=== PATIENT | female | born 1955 | race Two or more races ===

== ENCOUNTER 2016-12-05 17:27 | Emergency (ER) | payer OTHER ==
[~2016-12-05] VITALS: Ht 157.5 cm; Wt 79.4 kg
[2016-12-05 17:30] VITALS: BP 103/72
== END 2016-12-05 18:40 | disposition home or self-care (01) ==
LOC: ER 17:35
DX: H11.31 Conjunctival hemorrhage, right eye (principal); J45.909 Unspecified asthma, uncomplicated; R73.09 Other abnormal glucose
CPT/HCPCS: 82962; 99282; A4606; Z7610

== ENCOUNTER 2018-05-03 15:42 | Emergency (ER) | payer OTHER ==
[~2018-05-03] VITALS: Ht 157.5 cm; Wt 83.9 kg
--- NOTE | 2018-05-03 15:55 | NUR ---
PT SEEN AND EXAMINED BY DR. CANO.
[2018-05-03] MEDS ORDERED: ASPIRIN 81 MG TAB.CHEW PO ONE (16:00)
--- NOTE | 2018-05-03 16:05 | NUR ---
PT BIB SELF C/O MIDSTERNAL CHEST PAIN, SUDDEN ONSET X 15 MINS, PT IS AAOX3, NOT IN RESPIRATORY DISTRESS, V/S STABLE, HOOKED TO MONITOR, KEPT RESTED AND COMFORTABLE, WILL CONTINUE TO MONITOR.
--- NOTE | 2018-05-03 16:05 | NUR ---
PT IV LINE ESTABLISHED, LABS DRAWNED AND SENT TO LAB.
[2018-05-03] MEDS ORDERED: ASPIRIN 81 MG TAB.CHEW ONE (16:06)
[2018-05-03 16:12] LABS: BASOPHILS # (AUTO) 0.1 /CMM (0.0-0.2); EOSINOPHILS % (AUTO) 4.3 % (0.0-6.0); HEMATOCRIT 42 % (33-45); HEMOGLOBIN 14.2 g/dL (11.5-14.8); LYMPHOCYTES # (AUTO) 2.2 /CMM (0.8-4.8); LYMPHOCYTES % (AUTO) 33.9 % (20.0-44.0); MEAN CORPUSCULAR HGB CONC 34 g/dl (31.0-36.0); MEAN CORPUSCULAR VOLUME 92 fL (82-100); MONOCYTES # (AUTO) 0.5 /CMM (0.1-1.30); MONOCYTES % (AUTO) 8.1 % (2.0-12.0); NEUTROPHILS # (AUTO) 3.4 /CMM (1.8-8.9); NEUTROPHILS % (AUTO) 52.7 % (43.0-81.0); PLATELET COUNT (AUTO) 229 /CMM (150-450); RED BLOOD CELL COUNT(AUTO) 4.57 MIL/uL (4.0-5.2); WHITE BLOOD COUNT (AUTO) 6.5 K/uL (4.3-11.0)
--- NOTE | 2018-05-03 16:16 | NUR ---
TEST DECK SUPERVISOR AT BEDSIDE FOR XRAY.
[2018-05-03 16:21] LABS: CALCIUM, SERUM 8.9 mg/dL (8.5-10.1); CARBON DIOXIDE 25 mmol/L (21-32); CHLORIDE 105 mmol/L (98-107); CREATININE 0.8 mg/dL (0.6-1.3); GLUCOSE 100 mg/dL (74-106); POTASSIUM 3.5 mmol/L (3.5-5.1); SODIUM SERUM 140 mmol/L (136-145); UREA NITROGEN, BLOOD 14 mg/dL (7-18)
[2018-05-03] MEDS ORDERED: ONDANSETRON HCL/PF 4 MG/2 ML VIAL ONE (17:10)
[2018-05-03] MEDS ORDERED: ONDANSETRON HCL/PF - ER 4 MG/2 ML VIAL IV ONE (17:30)
[2018-05-03 19:00] VITALS: BP 122/64
--- NOTE | 2018-05-03 19:10 | NUR ---
AWAITING REPEAT TROPONIN RESULT.
--- NOTE | 2018-05-03 19:17 | NUR ---
REPORT GIVEN TO MICHAEL SANDY FOR CECILLE.
--- NOTE | 2018-05-03 19:50 | NUR ---
IV removed. Catheter intact and site benign. Pressure and 4x4 applied to site. No bleeding noted.Patient discharged to home in stable condition. Written and verbal after care instructions given. Patient verbalizes understanding of instruction. PT AMBULATORY WITH STEADY GAIT.
== END 2018-05-03 20:06 | disposition home or self-care (01) ==
LOC: ER 15:42
DX: R07.89 Other chest pain (principal); J45.909 Unspecified asthma, uncomplicated
CPT/HCPCS: 36415; 71045; 80048; 84484 ×2; 85025; 93005 ×2; 96374; 99284; A4606; J2405

== ENCOUNTER 2018-07-20 08:08 | Emergency (ER) | payer OTHER ==
[~2018-07-20] VITALS: Ht 157.5 cm; Wt 81.2 kg
--- NOTE | 2018-07-20 08:15 | NUR ---
BIB SELF FROM HOME. AAOX4. BREATHING EVEN AND UNLABORED. AMBULATORY. C/O FEVER SINCE MONDAY WITH PRODUCTIVE COUGH WITH YELLOW SPUTUM. PT NOTED CONGESTED. NO SOB. -N/V/D. PT REPORTED TAKING IBUPROHEN YESTERDAY, COUGH MEDICATION AND ZYRTEC. TO ER BED 4. MD AT BEDSIDE FOR EVAL. AWAITING ORDERS.
--- NOTE | 2018-07-20 08:28 | NUR ---
XRAY AT BEDSIDE
--- NOTE | 2018-07-20 08:37 | NUR ---
PT BEING WHEELED ON WHEELCHAIR FROM RADIOLOGY
[2018-07-20] MEDS ORDERED: AZITHROMYCIN 250 MG TABLET ONE (09:04)
[2018-07-20 09:15] VITALS: BP 122/76
[2018-07-20] MEDS ORDERED: AZITHROMYCIN 250 MG TABLET PO ONE (09:30)
== END 2018-07-20 09:16 | disposition home or self-care (01) ==
LOC: ER 08:09
DX: J20.9 Acute bronchitis, unspecified (principal); J45.909 Unspecified asthma, uncomplicated; Z87.01 Personal history of pneumonia (recurrent)
CPT/HCPCS: 71046

== ENCOUNTER → 2021-03-23 | Emergency (ER) | payer OTHER ==
[~2021-03-23] VITALS: Ht 157.5 cm; Wt 84.8 kg
[~2021-03-23] MED LIST: ACETAMINOPHEN 650 MG/20.3 ML UDC ONE; ACETAMINOPHEN 650 MG/20.3 ML UDC PO ONE; ALBU18HF2 IH; IOHEXOL-350 100 ML VIAL IV ONE; IV NS 0.9% 250 ML IV ONE; LORA10TA7 PO
[2021-03-23 18:02] LABS: BASOPHILS % (AUTO) 0.6 % (0.0-2.0); EOSINOPHILS % (AUTO) 2.9 % (0.0-6.0); HEMATOCRIT 46 % (33-45); HEMOGLOBIN 15.4 g/dL (11.5-14.8); MEAN CORPUSCULAR HGB CONC 34 g/dl (31.0-36.0); MEAN CORPUSCULAR VOLUME 94 fL (82-100); MONOCYTES # (AUTO) 0.7 K/uL (0.1-1.30); MONOCYTES % (AUTO) 8.9 % (2.0-12.0); NEUTROPHILS # (AUTO) 5.9 K/uL (1.8-8.9); NEUTROPHILS % (AUTO) 74.6 % (43.0-81.0); PLATELET COUNT (AUTO) 237 K/uL (150-450); RED BLOOD CELL COUNT(AUTO) 4.83 MIL/uL (4.0-5.2); WHITE BLOOD COUNT (AUTO) 7.9 K/uL (4.3-11.0)
[2021-03-23 18:24] LABS: CALCIUM, SERUM 8.6 mg/dL (8.5-10.1); CARBON DIOXIDE 26 mmol/L (21-32); CHLORIDE 103 mmol/L (98-107); CREATININE 0.7 mg/dL (0.6-1.3); GLUCOSE 101 mg/dL (74-106); POTASSIUM 3.6 mmol/L (3.5-5.1); SODIUM SERUM 138 mmol/L (136-145); UREA NITROGEN, BLOOD 12 mg/dL (7-18)
[2021-03-23 18:36] LABS: ALANINE AMINOTRANSFERASE 80 U/L (12-78); ALBUMIN 3.9 g/dL (3.4-5.0); ALKALINE PHOSPHATASE 80 U/L (46-116); ASPARTATE AMINOTRANSFERASE 51 U/L (15-37); BILIRUBIN,DIRECT 0.2 mg/dL (0.0-0.2); BILIRUBIN,TOTAL 0.4 mg/dL (0.2-1.0); TOTAL PROTEIN, SERUM 8.3 g/dL (6.4-8.2)
[2021-03-23 21:12] VITALS: BP 132/78
--- NOTE | 2021-03-23 21:12 | NUR ---
Patient discharged to home in stable condition. Written and verbal after care instructions given. Patient verbalizes understanding of instruction.IV removed. Catheter intact and site benign. Pressure and 4x4 applied to site. No bleeding noted.
[2021-03-23 23:05] LABS: BILIRUBIN,URINE NEGATIVE (NEGATIVE); COLOR,URINE YELLOW (YELLOW); LEUKOCYTE ESTERASE ,URINE NEGATIVE (NEGATIVE); NITRITE, URINE NEGATIVE (NEGATIVE); PROTEIN,URINE NEGATIVE (NEGATIVE); UGLUCOSE NEGATIVE (NEGATIVE); UROBILINOGEN,URINE 0.2 EU/dL (0.2)
[2021-03-24 08:48] LABS: BACTERIA,URINE None seen /HPF (None Seen); RBC,URINE 0-2 /HPF (0-2); SQUAMOUS EPITHELIAL CELL,UR None Seen /HPF (None Seen); WBC,URINE 0-2 /HPF (0-3)
== END | disposition home or self-care (01) ==
LOC: ER 16:51
DX: J18.9 Pneumonia, unspecified organism (principal); U09.9 Post COVID-19 condition, unspecified; R50.9 Fever, unspecified; R00.0 Tachycardia, unspecified; R04.2 Hemoptysis; J45.909 Unspecified asthma, uncomplicated; Z79.51 Long term (current) use of inhaled steroids; Z79.899 Other long term (current) drug therapy
CPT/HCPCS: 36415; 71045; 71275; 80048; 80076; 81001; 83605; 83880; 84484; 85025; 85378; 85730; 87040 ×2; 93005 ×2; 99285; J7050; Q9967

== ENCOUNTER 2021-03-29 23:47 | Inpatient (IN) | payer OTHER ==
[~2021-03-29] VITALS: Ht 157.5 cm; Wt 83.9 kg
[~2021-03-29 23:47] MED LIST changes: -ACETAMINOPHEN 650 MG/20.3 ML UDC ONE; -ACETAMINOPHEN 650 MG/20.3 ML UDC PO ONE; -IOHEXOL-350 100 ML VIAL IV ONE; -IV NS 0.9% 250 ML IV ONE
[2021-03-30] MEDS ORDERED: ONDANSETRON HCL/PF 4 MG/2 ML VIAL ONE (00:21)
[2021-03-30] MEDS ORDERED: MORPHINE SULFATE INJ 2 MG/ML DISP.SYRIN ONE (00:22)
[2021-03-30] MEDS ORDERED: MORPHINE SULFATE INJ 4 MG/ML DISP.SYRIN ONE ×3 (00:22→10:04)
[2021-03-30] MEDS ORDERED: ONDANSETRON HCL/PF 4 MG/2 ML VIAL IV ONE (00:30)
[2021-03-30] MEDS ORDERED: MORPHINE SULFATE INJ 2 MG/ML DISP.SYRIN IV ONE ×2 (00:30→01:30)
[2021-03-30 04:04] LABS: BASOPHILS % (AUTO) 0.4 % (0.0-2.0); EOSINOPHILS % (AUTO) 0.3 % (0.0-6.0); HEMATOCRIT 40 % (33-45); HEMOGLOBIN 13.3 g/dL (11.5-14.8); LYMPHOCYTES # (AUTO) 1.5 K/uL (0.8-4.8); LYMPHOCYTES % (AUTO) 13.7 % (20.0-44.0); MEAN CORPUSCULAR HGB CONC 33 g/dl (31.0-36.0); MEAN CORPUSCULAR VOLUME 92 fL (82-100); MONOCYTES # (AUTO) 0.6 K/uL (0.1-1.30); MONOCYTES % (AUTO) 5.3 % (2.0-12.0); NEUTROPHILS # (AUTO) 8.8 K/uL (1.8-8.9); NEUTROPHILS % (AUTO) 80.3 % (43.0-81.0); PLATELET COUNT (AUTO) 203 K/uL (150-450); RED BLOOD CELL COUNT(AUTO) 4.36 MIL/uL (4.0-5.2)
[2021-03-30 04:22] LABS: CALCIUM, SERUM 8.3 mg/dL (8.5-10.1); CREATININE 0.7 mg/dL (0.6-1.3); POTASSIUM 3.6 mmol/L (3.5-5.1)
[2021-03-30] MEDS ORDERED: MORPHINE SULFATE INJ 4 MG/ML DISP.SYRIN IV STA (04:37)
[2021-03-30 09:30] LABS: ALANINE AMINOTRANSFERASE 56 U/L (12-78); ALBUMIN 3.4 g/dL (3.4-5.0); ALKALINE PHOSPHATASE 71 U/L (46-116); ASPARTATE AMINOTRANSFERASE 35 U/L (15-37); BILIRUBIN,DIRECT 0.1 mg/dL (0.0-0.2); BILIRUBIN,TOTAL 0.2 mg/dL (0.2-1.0); TOTAL PROTEIN, SERUM 7.6 g/dL (6.4-8.2)
[2021-03-30] MEDS ORDERED: MORPHINE SULFATE INJ 4 MG/ML DISP.SYRIN IV ONE (09:30)
[2021-03-30] MEDS: MORPHINE SULFATE INJ 4 MG/ML DISP.SYRIN IV PRN ×2 (15:16→19:27)
[2021-03-30 16:00] VITALS: BP 170/89
[2021-03-30] MEDS ORDERED: ONDANSETRON HCL/PF 4 MG/2 ML VIAL IVP PRN (17:00)
[2021-03-30] MEDS ORDERED: MAG HYDROX/AL HYDROX/SIMETH 30 ML UDC PO PRN (17:00)
[2021-03-30] MEDS ORDERED: ACETAMINOPHEN 325 MG TABLET PO PRN (17:00)
[2021-03-30] MEDS ORDERED: MAGNESIUM HYDROXIDE 30 ML UDC PO PRN (17:00)
[2021-03-30] MEDS ORDERED: ZOLPIDEM TARTRATE 5 MG TABLET PO PRN (17:00)
[2021-03-30] MEDS ORDERED: Z GUARD REMEDY 4 OZ OINT TP PRN (17:00)
[2021-03-30] MEDS: HYDROCODONE/APAP 5/325MG TABLET PO PRN ×2 (17:41→22:13)
[2021-03-30 20:00] VITALS: BP 116/70
[2021-03-30] MEDS ORDERED: IV D5/ 0.9% NACL 1,000 ML IV PRN (20:00)
[2021-03-31] MEDS: MORPHINE SULFATE INJ 4 MG/ML DISP.SYRIN IV PRN (01:27)
[2021-03-31] MEDS ORDERED: PANTOPRAZOLE 40 MG TABLET.DR PO SCH (07:30)
== END 2021-03-31 01:34 | disposition short-term general hospital (02) | DRG 534 ==
LOC: ER 23:48 → TRANSITION 03-30 02:55 → MED 03-30 08:36 → TRANSITION 03-30 12:12 → MED 03-30 15:01
PROVIDERS: ADMIT Student in an Organized Health Care Education/Training Program; ATTEND Nurse Practitioner Acute Care
DX: S72.352A Displaced comminuted fracture of shaft of left femur, initial encounter for closed fracture (principal); J45.909 Unspecified asthma, uncomplicated; E66.9 Obesity, unspecified; E83.51 Hypocalcemia; Z86.16 Personal history of COVID-19; Z87.01 Personal history of pneumonia (recurrent); R73.9 Hyperglycemia, unspecified; R74.01 Elevation of levels of liver transaminase levels; W19.XXXA Unspecified fall, initial encounter; Z68.33 Body mass index [BMI] 33.0-33.9, adult; Z71.3 Dietary counseling and surveillance; Z20.822 Contact with and (suspected) exposure to COVID-19; Y93.9 Activity, unspecified; Y92.003 Bedroom of unspecified non-institutional (private) residence as the place of occurrence of the external cause
CPT/HCPCS: 36415; 71045-TC; 73502; 73552; 73564-TC; 73700-TC; 80048-TC; 80076-TC; 84484-TC; 85025-TC; 85730-TC; 87081-TC; 93307-TC; C9803; G0378; J2270; J2405; J7042

== ENCOUNTER 2021-08-19 22:53 | Emergency (ER) | payer OTHER ==
[~2021-08-19] VITALS: Ht 152.4 cm; Wt 80.3 kg
--- NOTE | 2021-08-20 00:31 | NUR ---
BIBSELF C/O COUGH, N/V FEVER X 1 DAY WITH BODY PAIN. TOOK COVID TEST AT HOME WITH NEGATIVE RESULT. DENIES SOB ON RA. PT AWAKE AND ALERT BREATHING EVEN AND UNLABORED. ALL V/S WNL.
--- NOTE | 2021-08-20 00:35 | NUR ---
PT AMBULATED TO BATHROOM W/ WALKER. STEADY GAIT NOTED.
[2021-08-20] MEDS ORDERED: IBUPROFEN 400 MG TABLET ONE (00:41)
--- NOTE | 2021-08-20 00:49 | NUR ---
xray at bedside
--- NOTE | 2021-08-20 00:53 | NUR ---
URINE COLLECTED AND SENT TO LAB
--- NOTE | 2021-08-20 00:53 | NUR ---
COVID AND INFLUENZA SWAB COLLECTED AND SENT TO LAB
[2021-08-20 00:55] LABS: BILIRUBIN,URINE NEGATIVE (NEGATIVE); COLOR,URINE YELLOW (YELLOW); LEUKOCYTE ESTERASE ,URINE TRACE (NEGATIVE); NITRITE, URINE NEGATIVE (NEGATIVE); PROTEIN,URINE NEGATIVE (NEGATIVE); UGLUCOSE NEGATIVE (NEGATIVE); UROBILINOGEN,URINE 0.2 EU/dL (0.2)
[2021-08-20 00:59] LABS: BACTERIA,URINE Rare /HPF (None Seen); SQUAMOUS EPITHELIAL CELL,UR Few /HPF (None Seen); WBC,URINE 0-2 /HPF (0-3)
[2021-08-20] MEDS ORDERED: IBUPROFEN 400 MG TABLET PO ONE (01:00)
--- NOTE | 2021-08-20 03:04 | NUR ---
Patient discharged to home in stable condition. Written and verbal after care instructions given. Patient verbalizes understanding of instruction.
[2021-08-20 03:11] VITALS: BP 132/68
== END 2021-08-20 03:12 | disposition home or self-care (01) ==
LOC: ER 22:55
DX: B34.9 Viral infection, unspecified (principal); Z20.822 Contact with and (suspected) exposure to COVID-19; J45.909 Unspecified asthma, uncomplicated; R03.0 Elevated blood-pressure reading, without diagnosis of hypertension
CPT/HCPCS: 71045; 81001; 87426; 87804; 99284; C9803